=== PATIENT | male | born 1985 | race American Indian/Alaskan Native ===

== ENCOUNTER 2020-01-12 01:15 | Emergency (ER) | payer SELFPAY ==
[2020-01-12] MEDS ORDERED: ACETAMINOPHEN 325 MG TAB ONE (02:35)
[2020-01-12 02:45] VITALS: BP 123/83
[2020-01-12] MEDS ORDERED: ACETAMINOPHEN 325 MG TAB PO ONE (03:06)
[2020-01-12 03:50] LABS: Basophils # (Auto) 0.1 K/mm3 (0.0-0.1); Basophils % (Auto) 1.9 % (0.0-1.8); Eosinophils # (Auto) 0.1 K/mm3 (0.0-0.4); Eosinophils % (Auto) 1.2 % (0.0-4.3); Hematocrit 48.7 % (35.5-45.6); Hemoglobin 16.6 gm/dl (11.8-15.2); Lymphocytes % (Auto) 21.3 % (13.4-35.0); Mean Corpuscular HGB Conc 34 % (32-34); Mean Corpuscular Volume 96 fl (84-94); Monocytes # (Auto) 0.6 K/mm3 (0.0-0.8); Monocytes % (Auto) 12.3 % (0.0-7.3); Platelet Count 255 K/mm3 (140-440); Red Blood Count 5.08 M/mm3 (3.65-5.03); Red Cell Distribution Width 14.1 % (13.2-15.2)
[2020-01-12 03:55] LABS: Alanine Aminotransferase 41 units/L (7-56); Albumin 5.1 g/dL (3.9-5); Blood Urea Nitrogen 6 mg/dL (9-20); Calcium 10.4 mg/dL (8.4-10.2); Hemolysis Index 12
[2020-01-12 03:58] LABS: BUN/Creatinine Ratio 10
== END 2020-01-12 02:58 | disposition left against medical advice (07) ==
LOC: ED 01:15
DX: R55 Syncope and collapse (principal); Z53.21 Procedure and treatment not carried out due to patient leaving prior to being seen by health care provider
CPT/HCPCS: 36415; 80053; 85025; 93005